=== PATIENT | female | born 1980 | race Two or more races ===

== ENCOUNTER 2021-09-01 10:58 | Emergency (ER) | payer OTHER ==
[~2021-09-01] VITALS: Ht 152.4 cm; Wt 68.5 kg
[2021-09-02] MEDS ORDERED: MULTI VITAMIN1 EACH (11:53)
== END 2021-09-01 17:24 | disposition home or self-care (01) ==
LOC: ER 10:58
DX: K29.00 Acute gastritis without bleeding (principal)

== ENCOUNTER 2021-09-02 11:38 | Inpatient (IN) | payer OTHER ==
[~2021-09-02] VITALS: Ht 160 cm; Wt 68.0 kg
[2021-09-02] MEDS ORDERED: MULTI VITAMIN1 EACH (11:53)
== END 2021-09-04 15:55 | disposition home or self-care (01) | DRG 419 ==
LOC: ER 11:38 → SURH 14:56 → SEC-K 14:56 → SURH 19:08
PROVIDERS: ADMIT Specialist; ATTEND Specialist
PROC: BF13YZZ Fluoroscopy of Gallbladder and Bile Ducts using Other Contrast (ICD-10-PCS; 2021-09-03)
PROC: 0FT44ZZ Resection of Gallbladder, Percutaneous Endoscopic Approach (ICD-10-PCS; principal; 2021-09-03 12:00)
DX: K80.12 Calculus of gallbladder with acute and chronic cholecystitis without obstruction (principal); Z20.822 Contact with and (suspected) exposure to COVID-19